=== PATIENT | male | born 1950 | race Caucasian/White ===

== ENCOUNTER 2021-04-11 11:03 | Inpatient (IN) | payer OTHER ==
[~2021-04-11] VITALS: Ht 175.3 cm; Wt 65.4 kg
[~2021-04-11 11:03] MED LIST: SIMV5TAB50
[2021-04-11] MEDS ORDERED: ASPirin 81 mg TAB PO ONE (11:30)
[2021-04-11 12:26] LABS: INR 1.01 (0.9-1.15); Partial Thromboplastin Time 28.2 sec (23.0-31.2)
[2021-04-11] MEDS ORDERED: SODIUM CHLORIDE 0.9% 1,000 ML IV ONE ×2 (12:30→13:45)
[2021-04-11 12:36] LABS: Basophils # (auto) 0 10 ^3/uL (0-0.2); Basophils % (auto) 0.3 % (0.0-2.0); Eosinophils # (auto) 0 10 ^3/uL (0-0.8); Hematocrit 45.6 % (41.0-53.0); Hemoglobin 15.3 g/dL (13.5-17.5); Lymphocytes # (auto) 0.8 10 ^3/uL (0.4-5.4); Lymphocytes % (auto) 5.2 % (10.0-50.0); Mean Corpuscular Hemoglobin 31.2 pg (28.0-32.0); Mean Corpuscular Hgb Conc. 33.6 g/dL (32.0-36.0); Monocytes # (auto) 0.8 10 ^3/uL (0-1.3); Monocytes % (auto) 5.5 % (0.0-12.0); Neutrophils # (auto) 13.3 10 ^3/uL (1.6-8.6); Nucleated Red Blood Cells % 0.1 %; Platelet Count (auto) 166 10^3/uL (140-450); Red Cell Distribution Width 13.5 % (11.8-14.3); White Blood Cell 14.9 10^3/uL (4.4-10.8)
[2021-04-11] MEDS ORDERED: cefTRIAXone 1GM/50ML D5W 50 ML IV ONE (13:00)
[2021-04-11 13:11] LABS: BUN/Creatinine Ratio 25.3; Calcium 9.3 mg/dL (8.5-10.1); Potassium 3.9 mmol/L (3.5-5.1)
[2021-04-11 15:47] LABS: Albumin 2.8 g/dL (3.4-5.0); BUN/Creatinine Ratio 24.4; Calcium 8.4 mg/dL (8.5-10.1); Potassium 4.7 mmol/L (3.5-5.1)
[2021-04-11 15:49] LABS: Bilirubin, Total 0.9 mg/dL (0.2-1.0); Total Protein 5.5 g/dL (6.4-8.2)
[2021-04-11] MEDS ORDERED: ONDANSETRON HCL 4 MG/2 ML VIAL IV PRN (17:00)
[2021-04-11] MEDS ORDERED: HYDROcodone-ACET 5/325MG TAB PO PRN (17:00)
[2021-04-11] MEDS ORDERED: MORPHINE SULF INJ 2 MG/ML SYRINGE 1ML IV PRN (17:00)
[2021-04-11] MEDS ORDERED: ACETAMINOPHEN 500 MG TAB PO PRN (17:00)
[2021-04-11] MEDS ORDERED: NITROGLYCERIN 0.4 MG SL TAB SL PRN (17:00)
[2021-04-11 17:04] VITALS: BP 103/71
[2021-04-11 17:55] LABS: Cholesterol 78 mg/dL (< 200); Lipase 106 U/L (73-393)
[2021-04-11 17:58] LABS: HDL Cholesterol 35 mg/dL (40-59); LDL Cholesterol 32 mg/dL (< 100); Triglycerides 82 mg/dL (< 150)
[2021-04-11] MEDS: ALBUTEROL SULF 2.5 MG/0.5ML(0.5%) NEB SOLN NEB SCH (18:00)
[2021-04-11] MEDS: IPRATROPIUM BROM 0.5 MG/2.5ML INH SOL NEB SCH (18:00)
[2021-04-11] MEDS: CLINDAMYCIN 300MG IV 50 ML IV SCH (18:24)
[2021-04-11] MEDS: SODIUM CHLORIDE 0.9% 1,000 ML IV SCH (18:24)
[2021-04-11] MEDS ORDERED: ASPI-231 PO (18:28)
[2021-04-11] MEDS ORDERED: LISI2.5T47 PO (18:28)
[2021-04-11] MEDS ORDERED: PANC3600 OR (18:28)
[2021-04-11] MEDS ORDERED: SIME80CH6 PO (18:28)
[2021-04-11] MEDS ORDERED: PANT1INJ3 IV (18:28)
[2021-04-11] MEDS ORDERED: CARV6.2551 PO (18:28)
[2021-04-11] MEDS ORDERED: ATOR40TA52 PO (18:28)
[2021-04-11] MEDS: PANCREATIC ENZYMES 4200 UNIT CAP PO SCH (18:44)
[2021-04-11 22:00] VITALS: BP 114/72
[2021-04-12] MEDS: CLINDAMYCIN 300MG IV 50 ML IV SCH ×3 (03:00→17:34)
[2021-04-12 05:00] VITALS: BP 116/70
[2021-04-12] MEDS: ALBUTEROL SULF 2.5 MG/0.5ML(0.5%) NEB SOLN NEB SCH ×3 (06:00→18:51)
[2021-04-12] MEDS: IPRATROPIUM BROM 0.5 MG/2.5ML INH SOL NEB SCH ×3 (06:00→18:52)
[2021-04-12] MEDS: SODIUM CHLORIDE 0.9% 1,000 ML IV SCH ×2 (06:16→19:40)
[2021-04-12 07:23] LABS: Basophils # (auto) 0.1 10 ^3/uL (0-0.2); Basophils % (auto) 0.6 % (0.0-2.0); Eosinophils # (auto) 0.1 10 ^3/uL (0-0.8); Eosinophils % (auto) 0.9 % (0.0-7.0); Hematocrit 36.5 % (41.0-53.0); Hemoglobin 12.7 g/dL (13.5-17.5); Lymphocytes # (auto) 1.3 10 ^3/uL (0.4-5.4); Lymphocytes % (auto) 16.6 % (10.0-50.0); Mean Corpuscular Hemoglobin 32.3 pg (28.0-32.0); Mean Corpuscular Hgb Conc. 34.8 g/dL (32.0-36.0); Mean Corpuscular Volume 92.7 fL (80.0-100.0); Monocytes # (auto) 0.6 10 ^3/uL (0-1.3); Monocytes % (auto) 7.5 % (0.0-12.0); Neutrophils # (auto) 5.8 10 ^3/uL (1.6-8.6); Neutrophils % (auto) 74.4 % (37.0-80.0); Platelet Count (auto) 113 10^3/uL (140-450); Red Blood Cells 3.94 10^6/uL (4.5-5.90); Red Cell Distribution Width 13.5 % (11.8-14.3); White Blood Cell 7.8 10^3/uL (4.4-10.8)
[2021-04-12 07:39] LABS: Potassium 4.2 mmol/L (3.5-5.1)
[2021-04-12 07:48] LABS: BUN/Creatinine Ratio 26.9; Calcium 8.6 mg/dL (8.5-10.1)
[2021-04-12] MEDS: ASPirin 81 mg TAB PO SCH (08:39)
[2021-04-12] MEDS: PANCREATIC ENZYMES 4200 UNIT CAP PO SCH ×3 (08:39→17:34)
[2021-04-12] MEDS: cefTRIAXone 1GM/50ML D5W 50 ML IV SCH (08:39)
[2021-04-12 09:00] VITALS: BP 106/66
[2021-04-12] MEDS ORDERED: PANTOPRAZOLE 40 MG/10 ML VIAL INJ IV ONE (11:15)
[2021-04-12 12:30] VITALS: BP 103/56
[2021-04-12] MEDS ORDERED: IPRATROPIUM BROM 0.5 MG/2.5ML INH SOL NEB PRN (15:45)
[2021-04-12] MEDS: SUCRALFATE 1 GM/10 ML ORAL SUSP PO SCH ×2 (16:31→21:30)
[2021-04-12] MEDS: MORPHINE SULF INJ 2 MG/ML SYRINGE 1ML IV PRN ×2 (16:32→20:38)
[2021-04-12 16:33] VITALS: BP 110/76
[2021-04-12 16:35] VITALS: BP 110/76
[2021-04-12 22:00] VITALS: BP 123/74
[2021-04-12] MEDS ORDERED: ATORVASTATIN 20 MG TAB PO SCH (22:00)
[2021-04-12] MEDS ORDERED: PANTOPRAZOLE 40 MG/10 ML VIAL INJ IV SCH (22:00)
[2021-04-13] MEDS: CLINDAMYCIN 300MG IV 50 ML IV SCH ×2 (02:21→10:00)
[2021-04-13 05:00] VITALS: BP 106/70
[2021-04-13] MEDS: SUCRALFATE 1 GM/10 ML ORAL SUSP PO SCH ×2 (06:25→11:33)
[2021-04-13] MEDS: MORPHINE SULF INJ 2 MG/ML SYRINGE 1ML IV PRN ×2 (06:26→11:37)
[2021-04-13] MEDS: IPRATROPIUM BROM 0.5 MG/2.5ML INH SOL NEB SCH ×2 (06:30→11:59)
[2021-04-13] MEDS: ALBUTEROL SULF 2.5 MG/0.5ML(0.5%) NEB SOLN NEB SCH ×2 (06:30→11:59)
[2021-04-13 06:39] LABS: Basophils # (auto) 0 10 ^3/uL (0-0.2); Basophils % (auto) 0.8 % (0.0-2.0); Eosinophils # (auto) 0.1 10 ^3/uL (0-0.8); Eosinophils % (auto) 1.4 % (0.0-7.0); Hematocrit 36.1 % (41.0-53.0); Hemoglobin 12.2 g/dL (13.5-17.5); Lymphocytes % (auto) 21.2 % (10.0-50.0); Mean Corpuscular Hemoglobin 31.5 pg (28.0-32.0); Mean Corpuscular Hgb Conc. 33.8 g/dL (32.0-36.0); Mean Corpuscular Volume 93.1 fL (80.0-100.0); Monocytes # (auto) 0.4 10 ^3/uL (0-1.3); Monocytes % (auto) 8.5 % (0.0-12.0); Neutrophils # (auto) 3.4 10 ^3/uL (1.6-8.6); Neutrophils % (auto) 68.1 % (37.0-80.0); Nucleated Red Blood Cells % 0.1 %; Platelet Count (auto) 114 10^3/uL (140-450); Red Blood Cells 3.87 10^6/uL (4.5-5.90); Red Cell Distribution Width 13.7 % (11.8-14.3)
[2021-04-13 06:59] LABS: INR 1.04 (0.9-1.15); Partial Thromboplastin Time 32.1 sec (23.0-31.2)
[2021-04-13 07:02] LABS: Chloride 110 mmol/L (98-107); Potassium 3.9 mmol/L (3.5-5.1); Sodium 140 mmol/L (136-145)
[2021-04-13 07:12] LABS: Alanine Aminotransferase 28 U/L (16-61); Albumin 2.5 g/dL (3.4-5.0); Alkaline Phosphatase 74 U/L (45-117); Anion Gap 6 (5-15); Aspartate Aminotransferase 14 U/L (15-37); BUN/Creatinine Ratio 19.7; Bilirubin, Total 0.9 mg/dL (0.2-1.0); Blood Urea Nitrogen 13 mg/dL (7-18); Calcium 8.3 mg/dL (8.5-10.1); Carbon Dioxide 24 mmol/L (21-32); GFR African American 153 mL/min; GFR Non-African American 127 mL/min; Glucose 90 mg/dL (74-106); Phosphorus 3.1 mg/dL (2.5-4.90); Total Protein 5.6 g/dL (6.4-8.2); Uric Acid 4.7 mg/dL (3.5-7.2)
[2021-04-13 08:00] VITALS: BP 108/71
[2021-04-13] MEDS: SODIUM CHLORIDE 0.9% 1,000 ML IV SCH (09:00)
[2021-04-13] MEDS ORDERED: ENOXAPARIN SOD 40 MG/0.4 ML SYRINGE SC SCH (10:00)
[2021-04-13] MEDS ORDERED: PANTOPRAZOLE 40 MG/10 ML VIAL INJ IV SCH (10:00)
[2021-04-13] MEDS ORDERED: METOPROLOL SUCCINATE XL 50 MG TAB PO SCH (10:00)
[2021-04-13] MEDS: cefTRIAXone 1GM/50ML D5W 50 ML IV SCH (11:32)
[2021-04-13] MEDS: PANCREATIC ENZYMES 4200 UNIT CAP PO SCH ×2 (11:36→12:00)
[2021-04-13] MEDS: ASPirin 81 mg TAB PO SCH (11:36)
[2021-04-13 12:00] VITALS: BP 131/80
[2021-04-13 12:46] VITALS: BP 108/71
== END 2021-04-13 14:45 | disposition home or self-care (01) | DRG 872 ==
LOC: ER 11:03 → EDBD 11:03 → TELE 16:49 → TELE-EAST 18:15
PROVIDERS: ADMIT Nurse Practitioner Acute Care; ATTEND Nurse Practitioner Acute Care
DX: A41.9 Sepsis, unspecified organism (principal); I25.10 Atherosclerotic heart disease of native coronary artery without angina pectoris; E78.5 Hyperlipidemia, unspecified; Z20.822 Contact with and (suspected) exposure to COVID-19; C10.9 Malignant neoplasm of oropharynx, unspecified; K86.89 Other specified diseases of pancreas; N40.0 Benign prostatic hyperplasia without lower urinary tract symptoms; Z90.49 Acquired absence of other specified parts of digestive tract; Z87.891 Personal history of nicotine dependence; I25.2 Old myocardial infarction; Z79.82 Long term (current) use of aspirin; Z79.899 Other long term (current) drug therapy; Z85.819 Personal history of malignant neoplasm of unspecified site of lip, oral cavity, and pharynx
CPT/HCPCS: 36415; 71045; 71250; 74176; 80048; 80053; 80061; 82306; 82378; 83036; 83605; 83690; 83735; 83880; 84100; 84443; 84484; 84550; 85025; 85610; 85730; 86301; 87040; 87426; 93005; 93306; 93970; 94640; 96365; 96375; 99291; C9113; G0378; J0696; J3490